=== PATIENT | female | born 1990 | race Caucasian/White ===

== ENCOUNTER 2021-09-25 20:45 | Observation (INO) ==
[2021-09-25 15:07] LABS: Bacteria,Urine Few per hpf (None-Few); Bilirubin,Urine Negative (Negative); Blood,Urine Large (Negative); Clarity,Urine Turbid (Clear); Color,Urine Light-Yellow (Yellow); Glucose,Urine (UA) Normal (Normal); Ketones,Urine Negative (Negative); Leukocyte Esterase,Urine Moderate (Negative); Mucus,Urine Few per lpf (None-Few); Nitrite,Urine Negative (Negative); PH,Urine 6.5 pH Units (5.0-8.0); Protein,Urine 30 mg/dL (Neg-Trace); RBC,Urine TNTC per hpf (0-3); Specific Gravity,Urine 1.013 (1.010-1.025); Squamous Epithelial Cell,Urine Moderate per hpf (None-Few); Urobilinogen,Urine Normal (Normal); WBC,Urine 15-30 per hpf (0-3)
[2021-09-25 15:55] LABS: Basophils % 0.2 %; Eosinophils % 0.3 %; Hematocrit 31.1 % (35.3-44.9); Immature Granulocytes % 0.8 % (0-4); Lymphocytes # 1.4 K/mcL (0.6-4.6); Lymphocytes % 15.7 %; Mean Corpuscular HGB Conc 32.2 g/dL (31.6-35.5); Mean Corpuscular Hemoglobin 27.8 pg (28.0-33.3); Mean Corpuscular Volume 86.4 fL (83.0-100.0); Mean Platelet Volume 10.1 fL (9.4-12.4); Monocytes # 0.6 K/mcL (0.0-1.3); Monocytes % 6.9 %; Neutrophils # 6.6 K/mcL (1.6-8.9); Platelet Count 234 K/mcL (140-400); Segmented Neutrophils % 76.1 %; White Blood Count 8.7 K/mcL (4.3-11.1)
[2021-09-25] MEDS: *HR* Nalbuphine 10 MG/ML AMPUL IV PRN (17:56)
[~2021-09-25 20:45] MED LIST: Ringers Solution, Lactated 500 ML IVC ONE; Ringers Solution, Lactated 500 ML IVC SCH; cefTRIAXone 2,000 MG in 0.9 % Sodium Chloride 20 ML IVP ONE; cefTRIAXone 2,000 MG in 0.9 % Sodium Chloride Mini Bag 100 ML IVPB ONE
[2021-09-26] MEDS: *HR* Nalbuphine 10 MG/ML AMPUL IV PRN (05:39)
[2021-09-26] MEDS ORDERED: *HR* HYDROmorphone (PF) 1 MG/ML SYRINGE IVP PRN (08:02)
[2021-09-26] MEDS ORDERED: *HR* HYDROcodone/Acet 5/325 mg TABLET PO PRN (08:21)
[2021-09-26] MEDS ORDERED: Ondansetron ODT 4 MG TAB.RAPDIS SL PRN (08:22)
[2021-09-26] MEDS: Ondansetron 4 MG/2 ML VIAL IVP PRN ×2 (08:34→21:34)
[2021-09-26] MEDS: Ringers Solution, Lactated 1,000 ML IVC SCH ×2 (08:36→20:21)
[2021-09-26] MEDS ORDERED: cefTRIAXone 1,000 MG in 0.9 % Sodium Chloride 10 ML IVP SCH (16:00)
[2021-09-27] MEDS: Ringers Solution, Lactated 1,000 ML IVC SCH (03:55)
[2021-09-27 07:32] VITALS: BP 107/67; PULSE 75; TEMP 97.8; O2SAT 98
== END 2021-09-27 11:30 | disposition home or self-care (01) ==
LOC: 1NENULAB → 1NENUOBS 20:45
PROVIDERS: ADMIT Obstetrics & Gynecology; ATTEND Obstetrics & Gynecology

== ENCOUNTER → 2021-09-29 23:40 | Observation (INO) ==
[2021-09-29 16:24] LABS: Bacteria,Urine Few per hpf (None-Few); Bilirubin,Urine Negative (Negative); Blood,Urine Large (Negative); Clarity,Urine Turbid (Clear); Color,Urine Light-Orange (Yellow); Glucose,Urine (UA) Normal (Normal); Ketones,Urine 80 mg/dL (Negative); Leukocyte Esterase,Urine Moderate (Negative); Mucus,Urine Few per lpf (None-Few); Nitrite,Urine Negative (Negative); Protein,Urine Trace mg/dL (Neg-Trace); RBC,Urine TNTC per hpf (0-3); Specific Gravity,Urine 1.013 (1.010-1.025); Squamous Epithelial Cell,Urine Moderate per hpf (None-Few); Urobilinogen,Urine Normal (Normal); WBC,Urine 15-30 per hpf (0-3)
[2021-09-29] MEDS: *HR* HYDROmorphone (PF) 1 MG/ML SYRINGE IVP PRN ×2 (16:49→20:17)
[2021-09-29 17:10] LABS: Basophils % 0.2 %; Eosinophils % 0.1 %; Hematocrit 31.7 % (35.3-44.9); Hemoglobin 10.2 g/dL (11.5-15.4); Immature Granulocytes % 0.5 % (0-4); Lymphocytes # 1.5 K/mcL (0.6-4.6); Lymphocytes % 14.1 %; Mean Corpuscular HGB Conc 32.2 g/dL (31.6-35.5); Mean Corpuscular Hemoglobin 27.6 pg (28.0-33.3); Mean Corpuscular Volume 85.7 fL (83.0-100.0); Mean Platelet Volume 10.3 fL (9.4-12.4); Monocytes # 0.6 K/mcL (0.0-1.3); Monocytes % 5.9 %; Neutrophils # 8.2 K/mcL (1.6-8.9); Platelet Count 212 K/mcL (140-400); Red Cell Distribution Width 13.2 % (11.5-14.5); Segmented Neutrophils % 79.2 %; White Blood Count 10.3 K/mcL (4.3-11.1)
[~2021-09-29 23:40] MED LIST changes: +*HR* OxyCODONE/APAP 5/325 TABLET PO ONE; +Iopamidol - 370 500 ML MLS IVP ONE; +Ondansetron 4 MG/2 ML VIAL IVP PRN; +Ringers Solution, Lactated 1,000 ML IVC ONE; +Ringers Solution, Lactated 1,000 ML IVC SCH; -Ringers Solution, Lactated 500 ML IVC ONE; -Ringers Solution, Lactated 500 ML IVC SCH; -cefTRIAXone 2,000 MG in 0.9 % Sodium Chloride 20 ML IVP ONE; -cefTRIAXone 2,000 MG in 0.9 % Sodium Chloride Mini Bag 100 ML IVPB ONE
== END | disposition short-term general hospital (02) ==
LOC: 1NENULAB
PROVIDERS: ADMIT Obstetrics & Gynecology; ATTEND Obstetrics & Gynecology

== ENCOUNTER 2021-10-23 14:37 | Observation (INO) ==
[2021-10-23] MEDS: Ondansetron 4 MG/2 ML VIAL IVP PRN (09:58)
[2021-10-23] MEDS: Morphine Sulfate 2 MG/ML SYRINGE IVP PRN (09:58)
[2021-10-23] MEDS: Ringers Solution, Lactated 1,000 ML IVC SCH (10:00)
[2021-10-23] MEDS: Famotidine 20 MG/2 ML VIAL IVP SCH ×2 (10:13→19:57)
[2021-10-23] MEDS: *HR* Promethazine 25 MG/ML VIAL IM PRN ×2 (11:17→21:30)
[2021-10-23 11:27] LABS: Bilirubin,Urine Negative (Negative); Blood,Urine Large (Negative); Clarity,Urine Ex.Turbid (Clear); Color,Urine Yellow (Yellow); Glucose,Urine (UA) Normal (Normal); Ketones,Urine Trace mg/dL (Negative); Leukocyte Esterase,Urine Large (Negative); Mucus,Urine Few per lpf (None-Few); Nitrite,Urine Negative (Negative); Protein,Urine >=300 mg/dL (Neg-Trace); RBC,Urine TNTC per hpf (0-3); Specific Gravity,Urine 1.021 (1.010-1.025); Squamous Epithelial Cell,Urine Many per hpf (None-Few); Transitional Epi Cells,Urine Few per hpf (None-Few); Urobilinogen,Urine Normal (Normal); WBC,Urine TNTC per hpf (0-3)
[2021-10-23 11:41] LABS: eGFR For African Americans > 60 (> 60); eGFR For Non-African Americans > 60 (> 60)
[2021-10-23 11:45] LABS: Basophils % 0.3 %; Eosinophils # 0.1 K/mcL (0.0-0.6); Eosinophils % 1.3 %; Hematocrit 33.1 % (35.3-44.9); Hemoglobin 10.7 g/dL (11.5-15.4); Immature Granulocytes % 0.9 % (0-4); Lymphocytes # 1.9 K/mcL (0.6-4.6); Lymphocytes % 17.3 %; Mean Corpuscular HGB Conc 32.3 g/dL (31.6-35.5); Mean Corpuscular Hemoglobin 26.9 pg (28.0-33.3); Mean Corpuscular Volume 83.2 fL (83.0-100.0); Mean Platelet Volume 10.7 fL (9.4-12.4); Monocytes # 0.8 K/mcL (0.0-1.3); Monocytes % 7.1 %; Neutrophils # 8.2 K/mcL (1.6-8.9); Platelet Count 200 K/mcL (140-400); Red Blood Count 3.98 M/mcL (3.82-4.97); Red Cell Distribution Width 13.2 % (11.5-14.5); Segmented Neutrophils % 73.1 %; White Blood Count 11.2 K/mcL (4.3-11.1)
[2021-10-23] MEDS: Piperacillin/Tazobactam 3.375 GM in 0.9 % Sodium Chloride Mini Bag 100 ML IVPB SCH ×2 (13:44→19:57)
[~2021-10-23 14:37] MED LIST changes: +*HR* HYDROcodone/Acet 5/325 mg TABLET PO PRN; -*HR* OxyCODONE/APAP 5/325 TABLET PO ONE; +0.9 % Sodium Chloride 500 ML IV ONE; +0.9 % Sodium Chloride 500 ML ONE; -Iopamidol - 370 500 ML MLS IVP ONE; -Ondansetron 4 MG/2 ML VIAL IVP PRN; -Ringers Solution, Lactated 1,000 ML IVC ONE; -Ringers Solution, Lactated 1,000 ML IVC SCH; +Thiamine (B-1) 100 MG, Folic Acid 1 MG, MVI, adult with vitamin K 10 ML in 0.9 % Sodi... IVPB ONE
[2021-10-24] MEDS: Piperacillin/Tazobactam 3.375 GM in 0.9 % Sodium Chloride Mini Bag 100 ML IVPB SCH ×3 (03:31→19:56)
[2021-10-24] MEDS: Ringers Solution, Lactated 1,000 ML IVC SCH (03:41)
[2021-10-24] MEDS: Famotidine 20 MG/2 ML VIAL IVP SCH (06:50)
[2021-10-24] MEDS: Ondansetron 4 MG/2 ML VIAL IVP PRN (07:30)
[2021-10-24] MEDS: Morphine Sulfate 2 MG/ML SYRINGE IVP PRN (07:31)
[2021-10-24 10:37] LABS: Alanine Aminotransferase 5 Units/L (7-52); Aspartate Amino Transferase 12 Units/L (13-39); Lactate Dehydrogenase 115 Units/L (140-271); Uric Acid 2.2 mg/dL (2.3-7.6); eGFR For African Americans > 60 (> 60); eGFR For Non-African Americans > 60 (> 60)
[2021-10-24 10:43] LABS: Basophils % 0.3 %; Eosinophils # 0.2 K/mcL (0.0-0.6); Eosinophils % 1.6 %; Hematocrit 28.6 % (35.3-44.9); Hemoglobin 9.1 g/dL (11.5-15.4); Immature Granulocytes % 0.8 % (0-4); Lymphocytes % 19.6 %; Mean Corpuscular HGB Conc 31.8 g/dL (31.6-35.5); Mean Corpuscular Hemoglobin 27.2 pg (28.0-33.3); Mean Corpuscular Volume 85.4 fL (83.0-100.0); Mean Platelet Volume 10.6 fL (9.4-12.4); Monocytes # 0.7 K/mcL (0.0-1.3); Monocytes % 6.7 %; Neutrophils # 7.2 K/mcL (1.6-8.9); Platelet Count 164 K/mcL (140-400); Red Blood Count 3.35 M/mcL (3.82-4.97); Red Cell Distribution Width 13.2 % (11.5-14.5); White Blood Count 10.1 K/mcL (4.3-11.1)
[2021-10-24 13:32] LABS: Protein/Creatinine Ratio,Urine 0.38 mg/mg (0.00-0.20)
[2021-10-24] MEDS ORDERED: Furosemide 20 MG/2 ML VIAL IVP ONE (14:45)
[2021-10-25 04:20] VITALS: O2SAT 96
[2021-10-25] MEDS: Piperacillin/Tazobactam 3.375 GM in 0.9 % Sodium Chloride Mini Bag 100 ML IVPB SCH (05:06)
[2021-10-25] MEDS: Famotidine 20 MG/2 ML VIAL IVP SCH (06:13)
[2021-10-25 07:13] VITALS: BP 107/67; PULSE 86; TEMP 97.8
== END 2021-10-25 10:39 | disposition home or self-care (01) ==
LOC: 1NENULAB → 1NENUOBS 14:37
PROVIDERS: ADMIT Obstetrics & Gynecology; ATTEND Obstetrics & Gynecology

== ENCOUNTER 2021-11-06 23:45 | Inpatient (IN) ==
[2021-11-06 11:42] LABS: Basophils % 0.3 %; Eosinophils # 0.1 K/mcL (0.0-0.6); Hematocrit 30.7 % (35.3-44.9); Hemoglobin 9.9 g/dL (11.5-15.4); Immature Granulocytes % 1.4 % (0-4); Lymphocytes % 17.7 %; Mean Corpuscular HGB Conc 32.2 g/dL (31.6-35.5); Mean Corpuscular Hemoglobin 26.7 pg (28.0-33.3); Mean Corpuscular Volume 82.7 fL (83.0-100.0); Mean Platelet Volume 10.2 fL (9.4-12.4); Monocytes # 0.8 K/mcL (0.0-1.3); Monocytes % 7.1 %; Platelet Count 246 K/mcL (140-400); Red Blood Count 3.71 M/mcL (3.82-4.97); Red Cell Distribution Width 13.5 % (11.5-14.5); Segmented Neutrophils % 72.5 %; White Blood Count 11.1 K/mcL (4.3-11.1)
[2021-11-06 12:05] LABS: Bacteria,Urine Few per hpf (None-Few); Bilirubin,Urine Negative (Negative); Blood,Urine Large (Negative); Clarity,Urine Ex.Turbid (Clear); Color,Urine Light-Orange (Yellow); Glucose,Urine (UA) Normal (Normal); Ketones,Urine 20 mg/dL (Negative); Leukocyte Esterase,Urine Moderate (Negative); Mucus,Urine Many per lpf (None-Few); Nitrite,Urine Negative (Negative); Protein,Urine 200 mg/dL (Neg-Trace); RBC,Urine TNTC per hpf (0-3); Specific Gravity,Urine 1.025 (1.010-1.025); Squamous Epithelial Cell,Urine Few per hpf (None-Few); Urobilinogen,Urine Normal (Normal); WBC,Urine 30-50 per hpf (0-3)
[2021-11-06 12:06] LABS: Alanine Aminotransferase 6 Units/L (7-52); Albumin 3.4 g/dL (3.5-5.7); Alkaline Phosphatase 118 Units/L (34-104); Aspartate Amino Transferase 13 Units/L (13-39); BUN/Creatinine Ratio 12 (6-26); Bilirubin,Total 0.3 mg/dL (0.3-1.0); Blood Urea Nitrogen 6 mg/dL (6-20); Calcium 8.6 mg/dL (8.6-10.3); Carbon Dioxide 22 mEq/L (23-29); Chloride 103 mEq/L (98-107); Globulin 3.3 g/dL (2.4-3.5); Glucose 84 mg/dL (70-105); Osmolality,Calculated 277 (280-300); Potassium 3.8 mEq/L (3.5-5.1); Sodium 135 mEq/L (136-145); Total Protein 6.7 g/dL (6.4-8.9); eGFR For African Americans > 60 (> 60); eGFR For Non-African Americans > 60 (> 60)
[2021-11-06] MEDS: Ringers Solution, Lactated 1,000 ML IVC SCH ×2 (12:48→23:23)
[2021-11-06] MEDS: *HR* OxyCODONE/APAP 5/325 TABLET PO PRN (18:02)
[2021-11-06] MEDS: Amoxicillin/Clavulanate 500 MG TABLET PO SCH (23:21)
[~2021-11-06 23:45] MED LIST changes: -*HR* HYDROcodone/Acet 5/325 mg TABLET PO PRN; -0.9 % Sodium Chloride 500 ML IV ONE; -0.9 % Sodium Chloride 500 ML ONE; +Ondansetron 4 MG/2 ML VIAL IVP ONE; +Ondansetron 4 MG/2 ML VIAL ONE; +Ringers Solution, Lactated 500 ML IVC SCH; -Thiamine (B-1) 100 MG, Folic Acid 1 MG, MVI, adult with vitamin K 10 ML in 0.9 % Sodi... IVPB ONE
[2021-11-07] MEDS: Ondansetron 4 MG/2 ML VIAL IVP PRN ×2 (00:33→07:55)
[2021-11-07] MEDS: *HR* OxyCODONE/APAP 5/325 TABLET PO PRN (08:00)
[2021-11-07] MEDS: Ringers Solution, Lactated 1,000 ML IVC SCH ×2 (09:58→16:37)
[2021-11-07] MEDS: Amoxicillin/Clavulanate 500 MG TABLET PO SCH ×2 (10:24→14:39)
[2021-11-07] MEDS ORDERED: Metoclopramide 10 MG/2 ML VIAL IVP PRN (15:43)
[2021-11-07] MEDS ORDERED: Famotidine 20 MG/2 ML VIAL IVP PRN (15:43)
[2021-11-07] MEDS ORDERED: Naloxone 0.4 MG/ML INJ IVP PRN ×2 (15:43→17:55)
[2021-11-07] MEDS ORDERED: Lidocaine 1% 20 ML MDV INFILT PRN (15:43)
[2021-11-07] MEDS ORDERED: miSOPROStoL 25 MCG TABLET PO SCH (17:00)
[2021-11-07 17:07] LABS: Amphetamine Screen,Urine Negative ng/mL (Cutoff=1000); Barbiturate Screen,Urine Negative ng/mL (Cutoff=200); Benzodiazepines Screen,Urine Negative ng/mL (Cutoff=200); Cannabinoid Screen,Urine Negative ng/mL (Cutoff = 50); Cocaine Screen,Urine Negative ng/mL (Cutoff= 300); Opiate Screen,Urine Negative ng/mL (Cutoff=300); Phencyclidine Screen,Urine Negative ng/mL (Cutoff=25)
[2021-11-07] MEDS ORDERED: Epidural Premix (fent/bupiv) 110 ML EP ONE (17:10)
[2021-11-07] MEDS ORDERED: Ondansetron 4 MG/2 ML VIAL IVP PRN (17:55)
[2021-11-07] MEDS ORDERED: Ropivacaine/PF 0.2% 20 ML VIAL EP ONE (17:55)
[2021-11-07] MEDS ORDERED: EPHEDrine 50 MG/ML VIAL IVP PRN (17:55)
[2021-11-07] MEDS ORDERED: Epidural Premix (fent/bupiv) 110 ML EP SCH (18:00)
[2021-11-07] MEDS ORDERED: Penicillin G Potassium 5,000,000 UNIT in 0.9 % Sodium Chloride Mini Bag 100 ML IVPB ONE (20:50)
[2021-11-07] MEDS ORDERED: Penicillin G Potassium 2,500,000 UNIT/105 ML MLS IVPB SCH (21:00)
[2021-11-08] MEDS ORDERED: *HR* Succinylcholine 200 MG/10 ML VIAL IVP ONE (00:31)
[2021-11-08] MEDS ORDERED: Chloroprocaine 3%/PF 20 ML VIAL INFILT ONE (00:32)
[2021-11-08] MEDS ORDERED: *HR* Morphine Sulfate/PF 10 MG/10 ML AMPUL ONE (00:44)
[2021-11-08] MEDS ORDERED: Acetaminophen IV 1,000 MG/100 ML BAG IVPB ONE (00:45)
[2021-11-08] MEDS ORDERED: *HR* FentaNYL (PF) 100 MCG/2 ML VIAL ONE (00:48)
[2021-11-08] MEDS ORDERED: Ondansetron 4 MG/2 ML VIAL ONE (01:02)
[2021-11-08] MEDS ORDERED: Ketorolac 30 MG/ML VIAL ONE (01:13)
[2021-11-08] MEDS ORDERED: Oxytocin 30 UNIT/503 ML BAG IVC ONE (01:39)
[2021-11-08] MEDS: *HR* HYDROmorphone PF 0.5 MG/0.5 ML SYRINGE IVP PRN ×2 (02:23→02:43)
[2021-11-08] MEDS ORDERED: Ondansetron 4 MG/2 ML VIAL IVP PRN (05:38)
[2021-11-08] MEDS ORDERED: OXYTOCIN/RINGERS LACTATE 10 UNIT/166.6 ML BAG IVC ONE (05:38)
[2021-11-08] MEDS ORDERED: Simethicone 80 MG TAB.CHEW PO PRN (05:38)
[2021-11-08] MEDS ORDERED: Metoclopramide 10 MG/2 ML VIAL IVP PRN (05:38)
[2021-11-08] MEDS ORDERED: Ringers Solution, Lactated 1,000 ML IVC SCH (05:38)
[2021-11-08] MEDS ORDERED: Rho Immune Globulin 1,500 UNIT SYRINGE IM ONE (05:38)
[2021-11-08] MEDS: Ibuprofen 600 MG TABLET PO SCH ×3 (05:54→20:52)
[2021-11-08] MEDS: Acetaminophen 325 MG TABLET PO SCH ×3 (05:55→20:51)
[2021-11-08] MEDS: Prenatal Vit/FA 1 EACH TABLET PO SCH (08:56)
[2021-11-08] MEDS: cephALEXin 500 MG CAPSULE PO SCH ×3 (08:56→20:51)
[2021-11-08] MEDS: metroNIDAZOLE 500 MG TABLET PO SCH ×3 (08:56→20:51)
[2021-11-08] MEDS ORDERED: Acyclovir 200 MG CAPSULE PO SCH (09:00)
[2021-11-08] MEDS: Amoxicillin/Clavulanate 500 MG TABLET PO SCH ×3 (12:43→20:51)
[2021-11-08] MEDS: *HR* OxyCODONE Immed Rel 5 MG TABLET PO PRN (18:29)
[2021-11-09] MEDS: *HR* OxyCODONE Immed Rel 5 MG TABLET PO PRN ×5 (02:13→23:57)
[2021-11-09] MEDS: Acetaminophen 325 MG TABLET PO SCH ×4 (04:13→22:11)
[2021-11-09] MEDS: Ibuprofen 600 MG TABLET PO SCH ×4 (04:13→22:11)
[2021-11-09 04:59] LABS: Basophils % 0.2 %; Eosinophils # 0.1 K/mcL (0.0-0.6); Eosinophils % 0.7 %; Hematocrit 22.7 % (35.3-44.9); Immature Granulocytes % 0.8 % (0-4); Lymphocytes # 2.5 K/mcL (0.6-4.6); Lymphocytes % 19.3 %; Mean Corpuscular HGB Conc 31.7 g/dL (31.6-35.5); Mean Corpuscular Hemoglobin 26.4 pg (28.0-33.3); Mean Corpuscular Volume 83.2 fL (83.0-100.0); Mean Platelet Volume 10.1 fL (9.4-12.4); Monocytes % 7.4 %; Neutrophils # 9.4 K/mcL (1.6-8.9); Platelet Count 197 K/mcL (140-400); Red Blood Count 2.73 M/mcL (3.82-4.97); Red Cell Distribution Width 13.8 % (11.5-14.5); Segmented Neutrophils % 71.6 %; White Blood Count 13.2 K/mcL (4.3-11.1)
[2021-11-09 05:00] LABS: Hemoglobin 7.2 g/dL (11.5-15.4)
[2021-11-09] MEDS: Amoxicillin/Clavulanate 500 MG TABLET PO SCH ×3 (07:57→22:10)
[2021-11-09] MEDS: metroNIDAZOLE 500 MG TABLET PO SCH ×3 (07:57→22:10)
[2021-11-09] MEDS: cephALEXin 500 MG CAPSULE PO SCH ×3 (07:57→22:10)
[2021-11-09] MEDS: Prenatal Vit/FA 1 EACH TABLET PO SCH (07:58)
[2021-11-10] MEDS: Ibuprofen 600 MG TABLET PO SCH ×2 (05:14→23:54)
[2021-11-10] MEDS: Acetaminophen 325 MG TABLET PO SCH ×2 (05:15→23:54)
[2021-11-10] MEDS ORDERED: Famotidine 20 MG/2 ML VIAL IVP ONE (07:00)
[2021-11-10] MEDS ORDERED: *HR* Midazolam HCl 2 MG/2 ML VIAL ONE (07:17)
[2021-11-10] MEDS ORDERED: *HR* Propofol 200 MG/20 ML VIAL IVP ONE (07:17)
[2021-11-10] MEDS ORDERED: *HR* FentaNYL (PF) 100 MCG/2 ML VIAL ONE (07:17)
[2021-11-10] MEDS ORDERED: Lidocaine -MPF 2% 5 ML VIAL ONE (07:17)
[2021-11-10] MEDS ORDERED: Ondansetron 4 MG/2 ML VIAL ONE (07:17)
[2021-11-10] MEDS ORDERED: Iopamidol - 300 50 ML VIAL ONE (07:22)
[2021-11-10] MEDS ORDERED: OXYTOCIN/RINGERS LACTATE 10 UNIT/166.6 ML BAG IVC ONE (11:48)
[2021-11-10] MEDS ORDERED: Simethicone 80 MG TAB.CHEW PO PRN (11:48)
[2021-11-10] MEDS ORDERED: Ringers Solution, Lactated 1,000 ML IVC SCH (11:48)
[2021-11-10] MEDS ORDERED: Ondansetron 4 MG/2 ML VIAL IVP PRN (11:48)
[2021-11-10] MEDS ORDERED: *HR* OxyCODONE Immed Rel 5 MG TABLET PO PRN (11:48)
[2021-11-10 13:43] LABS: Basophils % 0.3 %; Hematocrit 24.8 % (35.3-44.9); Hemoglobin 7.7 g/dL (11.5-15.4); Immature Granulocytes % 1.5 % (0-4); Lymphocytes # 0.9 K/mcL (0.6-4.6); Lymphocytes % 8.9 %; Mean Corpuscular Hemoglobin 26.6 pg (28.0-33.3); Mean Corpuscular Volume 85.8 fL (83.0-100.0); Mean Platelet Volume 9.7 fL (9.4-12.4); Monocytes # 0.2 K/mcL (0.0-1.3); Monocytes % 1.6 %; Neutrophils # 8.8 K/mcL (1.6-8.9); Platelet Count 223 K/mcL (140-400); Red Blood Count 2.89 M/mcL (3.82-4.97); Red Cell Distribution Width 13.9 % (11.5-14.5); Segmented Neutrophils % 87.7 %; White Blood Count 10.1 K/mcL (4.3-11.1)
[2021-11-10] MEDS: Amoxicillin/Clavulanate 500 MG TABLET PO SCH ×2 (14:54→20:07)
[2021-11-10 21:12] VITALS: TEMP 98.6
[2021-11-11] MEDS: Acetaminophen 325 MG TABLET PO SCH ×2 (00:19→10:33)
[2021-11-11] MEDS: Ibuprofen 600 MG TABLET PO SCH ×2 (00:19→10:33)
[2021-11-11 07:37] VITALS: BP 127/70; PULSE 72; O2SAT 96
[2021-11-11] MEDS ORDERED: Acyclovir 200 MG CAPSULE PO SCH (09:00)
[2021-11-11] MEDS ORDERED: Prenatal Vit/FA 1 EACH TABLET PO SCH (09:00)
[2021-11-11] MEDS: Amoxicillin/Clavulanate 500 MG TABLET PO SCH (09:07)
== END 2021-11-11 11:00 | disposition home or self-care (01) | DRG 783 ==
LOC: 1NENULAB → 1NENUOBS 23:45 → 1NENULAB 11-07 15:18 → 1NENUOBS 11-08 05:28
PROVIDERS: ADMIT Obstetrics & Gynecology; ATTEND Obstetrics & Gynecology

== ENCOUNTER 2022-01-27 10:17 | Observation (INO) ==
[2022-01-27] MEDS ORDERED: Iopamidol - 370 500 ML MLS IVP ONE (10:42)
[2022-01-27] MEDS ORDERED: Morphine Sulfate 2 MG/ML SYRINGE IVP ONE (10:42)
[2022-01-27] MEDS ORDERED: Ondansetron 4 MG/2 ML VIAL IVP ONE (10:43)
[2022-01-27 10:53] LABS: Bilirubin,Urine Negative (Negative); Blood,Urine Large (Negative); Clarity,Urine Clear (Clear); Color,Urine Light-Yellow (Yellow); Glucose,Urine (UA) Normal (Normal); Ketones,Urine Negative (Negative); Leukocyte Esterase,Urine Negative (Negative); Nitrite,Urine Negative (Negative); Protein,Urine Negative (Neg-Trace); RBC,Urine 15-30 per hpf (0-3); Specific Gravity,Urine 1.017 (1.010-1.025); Squamous Epithelial Cell,Urine Moderate per hpf (None-Few); Urobilinogen,Urine Normal (Normal); WBC,Urine 0-3 per hpf (0-3)
[2022-01-27 11:17] LABS: Basophils % 0.7 %; Eosinophils % 0.4 %; Hematocrit 36.6 % (35.3-44.9); Hemoglobin 11.8 g/dL (11.5-15.4); Immature Granulocytes % 0.2 % (0-4); Lymphocytes # 1.7 K/mcL (0.6-4.6); Lymphocytes % 37.3 %; Mean Corpuscular HGB Conc 32.2 g/dL (31.6-35.5); Mean Corpuscular Hemoglobin 25.7 pg (28.0-33.3); Mean Corpuscular Volume 79.7 fL (83.0-100.0); Mean Platelet Volume 11.6 fL (9.4-12.4); Monocytes # 0.5 K/mcL (0.0-1.3); Monocytes % 10.2 %; Neutrophils # 2.3 K/mcL (1.6-8.9); Platelet Count 239 K/mcL (140-400); Red Blood Count 4.59 M/mcL (3.82-4.97); Red Cell Distribution Width 13.5 % (11.5-14.5); Segmented Neutrophils % 51.2 %; White Blood Count 4.5 K/mcL (4.3-11.1)
[2022-01-27 11:34] LABS: Alanine Aminotransferase 29 Units/L (7-52); Albumin 4.3 g/dL (3.5-5.7); Albumin/Globulin Ratio 1.5 (1.1-2.2); Alkaline Phosphatase 81 Units/L (34-104); Amylase 36 Units/L (29-103); Aspartate Amino Transferase 25 Units/L (13-39); BUN/Creatinine Ratio 15 (6-26); Bilirubin,Direct 0.1 mg/dL (0.0-0.2); Bilirubin,Indirect 0.3 mg/dL (0.0-1.0); Bilirubin,Total 0.4 mg/dL (0.3-1.0); Blood Urea Nitrogen 10 mg/dL (6-20); Calcium 8.9 mg/dL (8.6-10.3); Carbon Dioxide 26 mEq/L (23-29); Chloride 105 mEq/L (98-107); Globulin 2.9 g/dL (2.4-3.5); Glucose 79 mg/dL (70-105); Lipase 36 Units/L (11-82); Osmolality,Calculated 276 (280-300); Potassium 4.3 mEq/L (3.5-5.1); Sodium 134 mEq/L (136-145); Total Protein 7.2 g/dL (6.4-8.9)
[2022-01-27] MEDS ORDERED: 0.9 % Sodium Chloride 1,000 ML IVC ONE (11:35)
[2022-01-27] MEDS ORDERED: Lidocaine -MPF 1% 5 ML AMPUL ONE (13:49)
[2022-01-27] MEDS ORDERED: *HR* Propofol 200 MG/20 ML VIAL IVP ONE (13:49)
[2022-01-27] MEDS ORDERED: *HR* Rocuronium Bromide 50 MG/5 ML VIAL ONE (13:49)
[2022-01-27] MEDS ORDERED: *HR* FentaNYL (PF) 100 MCG/2 ML VIAL ONE (13:50)
[2022-01-27] MEDS ORDERED: CefOXitin 1,000 MG VIAL ONE (13:51)
[2022-01-27] MEDS ORDERED: Ondansetron 4 MG/2 ML VIAL IVP PRN (13:57)
[2022-01-27] MEDS ORDERED: Acetaminophen IV 1,000 MG/100 ML BAG IVPB PRN (13:57)
[2022-01-27] MEDS ORDERED: Scopolamine Patch 1.5 MG PATCH.TD72 ONE (14:00)
[2022-01-27] MEDS ORDERED: cefOXitin 2,000 MG in 0.9 % Sodium Chloride 20 ML IVP ONE (14:20)
[2022-01-27] MEDS ORDERED: Lidocaine HCL 4 ML Topical Solution (Laryng-O-Jet Kit Sterile Pak) TP ONE (14:26)
[2022-01-27] MEDS ORDERED: CefOXitin 2,000 MG VIAL ONE (14:26)
[2022-01-27] MEDS ORDERED: *HR* HYDROMORPHONE 2 MG/ML VIAL ONE (14:37)
[2022-01-27] MEDS ORDERED: Neostigmine Methylsulfate 3 MG/3 ML SYRINGE ONE (15:08)
[2022-01-27] MEDS: *HR* HYDROmorphone PF 0.5 MG/0.5 ML SYRINGE IVP PRN ×3 (15:36→15:54)
[2022-01-27] MEDS ORDERED: Promethazine 6.25 MG in Water for inj. (sterile) 20 ML IVPB PRN (15:52)
[2022-01-27] MEDS ORDERED: *HR* Metoprolol 5 MG/5 ML VIAL IVP PRN (16:30)
[2022-01-27] MEDS ORDERED: *HR* OxyCODONE/APAP 5/325 TABLET PO PRN (16:30)
[2022-01-27] MEDS: cefOXitin 2,000 MG in 0.9 % Sodium Chloride 20 ML IVP SCH ×2 (16:56→23:43)
[2022-01-27] MEDS: 0.9 % Sodium Chloride 1,000 ML IVC SCH (16:57)
[2022-01-28] MEDS: 0.9 % Sodium Chloride 1,000 ML IVC SCH (05:17)
[2022-01-28 07:56] VITALS: BP 109/70; PULSE 72; TEMP 98; O2SAT 97
[2022-01-28] MEDS: cefOXitin 2,000 MG in 0.9 % Sodium Chloride 20 ML IVP SCH (08:01)
[2022-01-28] MEDS ORDERED: Flu Vac QV 22-23 (6MOS UP)/PF 0.5 ML SYRINGE IM ONE (08:08)
== END 2022-01-28 11:25 | disposition home or self-care (01) ==
LOC: 3ANU 10:17 → EMEROOARM 10:17 → 3ANU 13:49
PROVIDERS: ADMIT Surgery; ATTEND Surgery